=== PATIENT | female | born 1950 | race Caucasian/White ===

== ENCOUNTER → 2019-01-24 | Outpatient (CLI) | payer OTHER ==
--- NOTE | 2019-01-24 10:14 | 2DMMODE ---
[place] [address] 2 D/M-MODE ECHOCARDIOGRAM Name: TARIQ JENKINS Room: [facility]#: [id number] Admission: 01/24/19 Attend Phys: Judy Silva Discharge: Date of : 48 Date of Service: 01/24/19 1014 Report #: [id number] THIS REPORT FOR: //name// APPROVED REPORT Study performed: 01/24/2019 09:03:17 EXAM: Comprehensive 2D, Doppler, and color-flow Echocardiogram Patient Location: Out-Patient Status: routine BSA: 2.13 HR: 64 bpm BP: 122/78 mmHg Other Information Study Quality: Good Indications Murmur 2D Dimensions IVSd: 14.47 (7-11mm) LVOT Diam: 20.87 (18-24mm) LVDd: 39.59 mm PWd: 11.31 (7-11mm) Ascending Ao: 30.82 (22-36mm) LVDs: 21.82 (25-40mm) Aortic Root: 32.20 mm Volumes Left Atrial Volume (Systole) LA ESV Index: 11.00 mL/m2 Aortic Valve AoV Peak Adalberto.: 2.17 m/s AO Peak Gr.: 18.88 mmHg LVOT Max P.84 mmHg AO Mean Gr.: 10.23 mmHg LVOT Mean P.73 mmHg LVOT Max V: 1.21 m/s AO V2 VTI: 46.93 cm LVOT Mean V: 0.76 m/s ALMA (VTI): 2.12 cm2 LVOT V1 VTI: 29.17 cm Mitral Valve E/A Ratio: 0.72 MV Decel. Time: 234.13 ms MV E Max Adalberto.: 0.67 m/s MV PHT: 67.[place] [address] 2 D/M-MODE ECHOCARDIOGRAM Name: GREGORYTARIQHARSHIL MORAN Room: [facility]#: [id number] Admission: 01/24/19 Attend Phys: Judy Silva Discharge: Date of : 48 Date of Service: 01/24/19 1014 Report #: [id number] MVA (PHT): 3.24 cm2 TDI E/Lateral E': 7.44 E/Medial E': 9.57 Medial E' Adalberto.: 0.07 m/s Lateral E' Adalberto.: 0.09 m/s Pulmonary Valve PV Peak Adalberto.: 0.94 m/s PV Peak Gr.: 3.50 mmHg Tricuspid Valve RAP Estimate: 5.00 mmHg TR Peak Gr.: 18.47 mmHg RVSP: 23.47 mmHg PA Pressure: 23.47 mmHg Left Ventricle The left ventricle is normal size. There is normal LV segmental wall motion. Mild concentric left ventricular hypertrophy. Left ventricular systolic function is normal. The left ventricular ejection fraction is within the normal range. LVEF is 55-60%. Grade I - abnormal relaxation pattern. Right Ventricle The right ventricle is normal size. The right ventricular systolic function is normal. Atria The left atrium size is normal. The right atrium size is normal. Aortic Valve Aortic valve is mildly calcified. Mild aortic regurgitation. Mild aortic stenosis. Mitral Valve Mild mitral annular calcification. There is no mitral valve regurgitation noted. No evidence of mitral valve stenosis. Tricuspid Valve The tricuspid valve is normal in structure. Mild tricuspid regurgitation. Pulmonic Valve The pulmonary valve is normal in structure. Mild pulmonic [place] [address] 2 D/M-MODE ECHOCARDIOGRAM Name: TARIQ JENKINS Room: [facility] Ignacio#: [id number] Admission: 01/24/19 Attend Phys: Judy Silva Discharge: Date of : 48 Date of Service: 01/24/19 1014 Report #: [id number] Great Vessels The aortic root is normal in size. IVC is normal in size and collapses >50% with inspiration. Pericardium There is no pericardial effusion. <Conclusion> Mild concentric left ventricular hypertrophy. LVEF is 55-60%. Mild aortic stenosis. Mild aortic regurgitation. <ELECTRONICALLY SIGNED> By: Zach Heath MD, [facility] 01/24/19 1014 1014 1014 Zach Heath MD, [facility] /INF
== END ==
LOC: M.CRD 01-19 09:00
DX: I08.8 Other rheumatic multiple valve diseases (principal); Z88.8 Allergy status to other drugs, medicaments and biological substances; Z88.5 Allergy status to narcotic agent; Z88.2 Allergy status to sulfonamides; Z88.1 Allergy status to other antibiotic agents; Z88.0 Allergy status to penicillin; Z88.7 Allergy status to serum and vaccine

== ENCOUNTER → 2019-04-15 | Outpatient (CLI) | payer OTHER ==
[~2019-04-15] VITALS: Ht 165.1 cm; Wt 106.1 kg
[~2019-04-15] MED LIST: ASPIR 8181 MG PO; COUMADIN 3 MG TA3 M1 PO; FENOFIBRATE160 MG PO; OSTERA TABLET1 EAC1 PO; PREVACID15 MG PO; TOPROL XL25 MG PO
[2019-04-15 14:26] VITALS: BP 113/50
[2019-04-15 14:35] LABS: HEMATOCRIT 41.2 % (37.0-47.0); HEMOGLOBIN 13.7 gm/dL (12.0-15.0); MCH 29.9 pg (26.0-34.0); MCHC 33.2 g/dL (28.0-37.0); MCV 90.2 fL (80.0-100.0); MPV 9.5 fl. (7.2-11.1); RBC 4.57 mil/uL (4.20-5.00); RDW-CV 14.2 % (10.5-14.5)
[2019-04-15 14:41] LABS: CALCIUM 9.5 mg/dL (8.5-10.1); POTASSIUM 3.9 mmol/L (3.5-5.1)
[2019-04-15 14:44] LABS: APTT 32.6 Seconds (25.0-31.3); INR 1.4; PROTIME 14.1 Seconds (9.20-11.50)
--- NOTE | 2019-04-15 14:57 | EKG ---
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
[2019-04-15 16:18] VITALS: BP 108/33
--- NOTE | 2019-04-15 16:31 | EKG ---
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 04/15/19 1631 1613 1613 Oli Burgess MD, [facility] /EPI
[2019-04-15 16:41] VITALS: BP 121/49
[2019-04-15 16:58] VITALS: BP 120/39
--- NOTE | 2019-04-15 16:58 | CARD ---
[address] [address] CARDIAC CATH REPORT Name: TARIQ JENKINS Room: [facility] Pierre#: [id number] Admission: 04/15/19 Attend Phys: Oli Burgess MD Discharge: Date of : 48 Report #: [id number] THIS REPORT FOR: //name// APPROVED REPORT Study performed: 04/15/2019 14:39:01 Patient Status: Out-Patient Room #: Event Personnel: Oli Burgess Marketing Data Specialist, Cher Hurtado RN Outreach Analyst, David Coello (Chao) Vishal Luz Brad DIGITAL ASSOCIATE Monitor Exam: Insertion of Dual Chamber Permanent Pacemaker Indications: sick sinus syndrome. The patient is a 69 year-old female with a history of syncope and sick sinus syndrome. Conscious Sedation Fentanyl 50 mcg Implanted Devices: Biotronik Eluna 8 DRT, model #622448, serial #[id number] dual-chamber pacing generator. Biotronik Solia S 53, model #927206, serial #[id number] ventricular lead. Biotronik Solia S 45, model #484134, model #[id number] atrial lead. Procedure The patient underwent informed consent. We discussed the details of the procedure including the risks, which include, but not limited to bleeding, infection, vascular damage, cardiac perforation, and pneumothorax. She understood these risks and was willing to proceed. As such, she was brought to the EP/Cardiac Catheterization laboratory in a fasting and sedated state and prepped and draped in a sterile fashion, received IV antibiotics prior to initiation of the procedure and a venogram was performed showing patency of the left axillary vein. The patient underwent conscious sedation, with no related complications. The patient was brought to the EP/Cardiac Catheterization laboratory and the left chest and shoulder were prepped and draped in a sterile manner. During this case, Fluoroscopy and visipaque 20cc were used for imaging. The left subclavian region was infiltrated with 2% [place] [address] CARDIAC CATH REPORT Name: TARIQ JENKINS Room: [facility]#: [id number] Admission: 04/15/19 Attend Phys: Oli Burgess MD Discharge: Date of : 48 Report #: [id number] subcutaneous anesthesia. A transverse incision was made in the left upper chest cavity. The subcutaneous pocket was formed via blunt dissection. Percutaneous venous access was achieved and an introducer sheath was inserted into the left Subclavian vein. Sheaths were positions using the modified Seldinger technique Through the introducer sheaths the atrial and ventricular lead wires were positioned in the right atrial appendage and right ventricular apex respectively. Capturing and sensing thresholds were verified. Electrode Parameters P Wave: 6.4 mV R Wave: 7.5 mV Atrial Threshold: 585 ohms Ventricular Threshold: 682 ohms Atrial Resistance: 1.4 V at 0.40 ms Ventricular Resistance: 1.0 V at 0.40 ms Dual Chamber The atrial and ventricular leads were then secured using 0 silk sutures. The subcutaneous pocket was irrigated with vancomycin antibiotic solution.The atrial and ventricular leads were attached to the appropriate receptacles on the pulse generator and set screws firmly tightened to insure adequate contact and stability. The lead and pulse generator were placed into the subcutaneous pocket. Sharp and sponge counts were confirmed to be correct. At this time the pocket was closed subcutaneously with a 2.0 Vicryl and the skin was closed with a 4.0 Vicryl. The operative site was dressed in sterile fashion with steri strips and the patient was transferred to the floor in stable condition. Complications The patient tolerated the procedure well and there were no complications associated with the procedure. Findings 1. Pacing mode DDD/CLS. 2. Lower rate 60 bpm. 3. Upper tracking rate 130 bpm. Conclusion 1. Sick sinus syndrome and syncope. 2. Successful placement of a dual-chamber pacemaker with atrial [place] [address] CARDIAC CATH REPORT Name: [facility]ARIQ JENKINS [id number] Admission: 04/15/19 Attend Phys: Oli Burgess MD Discharge: Date of : 48 Report #: [id number] Recommendations 1. Follow-up site check in one week. 2. Follow-up device interrogation in one month. <ELECTRONICALLY SIGNED> By: Oli Burgess MD, FACC 04/15/19 165 56 56Mickevin Burgess MD, FACC /INF
== END | disposition home or self-care (01) ==
LOC: M.CL 12:22
PROVIDERS: Internal Medicine Cardiovascular Disease
DX: I49.5 Sick sinus syndrome (principal); R55 Syncope and collapse; Z98.890 Other specified postprocedural states; Z90.49 Acquired absence of other specified parts of digestive tract; Z90.710 Acquired absence of both cervix and uterus; Z87.891 Personal history of nicotine dependence; Z79.01 Long term (current) use of anticoagulants; Z79.899 Other long term (current) drug therapy; Z88.0 Allergy status to penicillin; Z88.2 Allergy status to sulfonamides; Z88.8 Allergy status to other drugs, medicaments and biological substances; Z79.82 Long term (current) use of aspirin

== ENCOUNTER → 2020-10-23 | Outpatient (CLI) | payer MEDICARE ==
[2020-10-23 12:42] LABS: CALCIUM 9.6 mg/dL (8.5-10.1); CREATININE 1.1 mg/dL (0.6-1.3); POTASSIUM 4.7 mmol/L (3.5-5.1)
== END ==
LOC: M.LAB 12:05
PROVIDERS: ATTEND Nurse Practitioner
DX: R06.02 Shortness of breath (principal); R60.0 Localized edema